=== PATIENT | female | born 1945 | race Caucasian/White ===

== ENCOUNTER 2018-01-21 09:03 | Day surgery (SDC) | payer MEDICARE, OTHER ==
[2018-01-21] MEDS ORDERED: LIDOCAINE 2% MDV (20MG/ML) 20ML VIAL IV ONE (09:04)
[2018-01-21] MEDS ORDERED: PROPOFOL 10 MG/ML VIAL IV ONE (09:04)
--- NOTE | 2018-01-21 12:40 | Operative Note ---
DATE OF SURGERY: 01/21/2018 OPERATION: COLONOSCOPY. PREOPERATIVE DIAGNOSIS: Personal history of adenomatous polyps. POSTOPERATIVE DIAGNOSIS: Normal exam. PREPARATION QUALITY: Good to excellent. ESTIMATED BLOOD LOSS: None. SPECIMENS: None. COMPLICATIONS: None apparent. PROCEDURE: After informed consent was obtained from the patient, she was placed in the left lateral decubitus position in the endoscopy suite, sedated and monitored by the department of anesthesia. Digital rectal exam was unremarkable other than some external tags. A well-lubricated [id number] colonoscope was inserted into the rectum and advanced to the cecum. Preparation quality was good to excellent. The ileocecal valve, appendiceal orifice, cecum, ascending colon, transverse colon, descending colon, sigmoid colon, and rectum were free of inflammatory changes, mass lesions, or polyps. Forward and J-turn views of the rectum and anorectum were unremarkable. The endoscope was straightened, the rectal ampulla deflated, and the endoscope was removed. RECOMMENDATIONS: I would suggest the patient resume her medications and diet. Based on her history, I would recommend a repeat exam in 5 years. As always, thank you for allowing me to participate in the healthcare of your patients. CC: Nery CHAVEZ
== END 2018-01-21 10:15 | disposition home or self-care (01) ==
LOC: HOP 09:03
PROVIDERS: ATTEND Internal Medicine Gastroenterology
DX: Z12.11 Encounter for screening for malignant neoplasm of colon (principal); Z86.010 Personal history of colon polyps; K21.9 Gastro-esophageal reflux disease without esophagitis; I10 Essential (primary) hypertension; E78.00 Pure hypercholesterolemia, unspecified
CPT/HCPCS: 00812; G0105